=== PATIENT | male | born 1980 | race Two or more races ===

== ENCOUNTER 2018-06-04 23:30 | Emergency (ER) | payer OTHER ==
[~2018-06-04] VITALS: Ht 185.4 cm; Wt 88.5 kg
[~2018-06-04 23:30] MED LIST: KETO10TA2 PO; ORPH100T PO; ZITHROMAX TRI-500 MG PO
[2018-06-05] MEDS ORDERED: CIPRO500 MG PO (07:55)
[2018-06-05] MEDS ORDERED: LEVSIN/SL0.125 MG SL (07:55)
[2018-06-05] MEDS ORDERED: INTESTINEX680 M1 PO (07:55)
== END 2018-06-05 10:20 | disposition home or self-care (01) ==
LOC: ER 23:30
DX: K52.9 Noninfective gastroenteritis and colitis, unspecified (principal)

== ENCOUNTER 2020-11-20 16:51 | Emergency (ER) | payer OTHER ==
[~2020-11-20] VITALS: Ht 185.4 cm; Wt 77.1 kg
[~2020-11-20 16:51] MED LIST changes: +CIPRO500 MG PO; +INTESTINEX680 M1 PO; +LEVSIN/SL0.125 MG SL
== END 2020-11-21 | disposition home or self-care (01) ==
LOC: ER 16:51
DX: U07.1 COVID-19 (principal); E86.0 Dehydration

== ENCOUNTER → 2024-03-24 | Emergency (ER) | payer OTHER ==
[~2024-03-24] VITALS: Ht 185.4 cm; Wt 74.8 kg
[~2024-03-24] MED LIST changes: +CEFTRIAXONE SODIUM 1,000 MG VIAL IM STA
== END | disposition home or self-care (01) ==
LOC: ER 21:34
DX: J06.9 Acute upper respiratory infection, unspecified (principal)
CPT/HCPCS: 96372; 99282; J0696

== ENCOUNTER 2024-03-30 16:49 | Emergency (ER) | payer OTHER ==
[~2024-03-30] VITALS: Ht 185.4 cm; Wt 72.6 kg
[~2024-03-30 16:49] MED LIST changes: -CEFTRIAXONE SODIUM 1,000 MG VIAL IM STA
== END 2024-03-30 20:07 | disposition home or self-care (01) ==
LOC: ER 16:51
DX: Z77.098 Contact with and (suspected) exposure to other hazardous, chiefly nonmedicinal, chemicals (principal); R05.9 Cough, unspecified; R06.02 Shortness of breath

== ENCOUNTER 2024-03-31 11:06 | Emergency (ER) | payer OTHER ==
[~2024-03-31] VITALS: Ht 185.4 cm; Wt 70.3 kg
[2024-03-31] MEDS ORDERED: CEFTRIAXONE SODIUM 1,000 MG VIAL IM STA (14:31)
== END 2024-03-31 14:45 | disposition home or self-care (01) ==
LOC: ER 11:08
DX: R05.8 Other specified cough (principal)

== ENCOUNTER 2024-04-07 10:28 | Emergency (ER) | payer OTHER ==
[~2024-04-07] VITALS: Ht 185.4 cm; Wt 72.6 kg
== END 2024-04-07 12:27 | disposition home or self-care (01) ==
LOC: ER 10:30
DX: R05.8 Other specified cough (principal)

== ENCOUNTER 2024-11-29 00:01 | Emergency (ER) | payer OTHER ==
[~2024-11-29] VITALS: Ht 170.2 cm; Wt 74.8 kg
[2024-11-29] MEDS ORDERED: TETANUS & DIPHTHERIA TOX,ADULT 0.5 ML VIAL IM STA (01:43)
[2024-11-29] MEDS ORDERED: CLINDAMYCIN PHOSPHATE 150 MG/ML (600mg) IM STA (01:44)
[2024-11-29] MEDS ORDERED: KETOROLAC TROMETHAMINE 60 MG VIAL IM STA (01:44)
[2024-11-29] MEDS ORDERED: OxyCODONE HCL 5 MG TABLET (ROXICODONE) PO STA (01:45)
[2024-12-01] MEDS ORDERED: CLEOCIN HCL300 MG PO (21:14)
== END 2024-11-29 01:59 | disposition home or self-care (01) ==
LOC: ER 00:01
DX: S50.871A Other superficial bite of right forearm, initial encounter (principal); W55.01XA Bitten by cat, initial encounter; Y93.89 Activity, other specified; Y92.018 Other place in single-family (private) house as the place of occurrence of the external cause
CPT/HCPCS: 90471; 90714; J1670

== ENCOUNTER → 2024-12-01 | Emergency (ER) | payer OTHER ==
[~2024-12-01] VITALS: Ht 185.4 cm; Wt 72.1 kg
[~2024-12-01] MED LIST changes: +CLEOCIN HCL300 MG PO; +KETOROLAC TROMETHAMINE 30 MG VIAL IV ONE; +PIPERACILLIN/TAZOBACTAM SODIUM 3.375 GM VIAL IV ONE
== END | disposition home or self-care (01) ==
LOC: ER 21:05
DX: S61.451A Open bite of right hand, initial encounter (principal); W55.01XA Bitten by cat, initial encounter; Y93.89 Activity, other specified; Y92.89 Other specified places as the place of occurrence of the external cause; Y99.9 Unspecified external cause status; R60.0 Localized edema